=== PATIENT | female | born 1955 | race Caucasian/White ===

== ENCOUNTER → 2016-11-12 | Outpatient (CLI) | payer MEDICARE, OTHER | LOC: HEART 5 09:39 | DX: R06.02 Shortness of breath (principal) | CPT/HCPCS: 93306 ==

== ENCOUNTER → 2016-12-08 | Outpatient (CLI) | payer MEDICARE, OTHER | LOC: HEART 5 13:43 | DX: G47.30 Sleep apnea, unspecified (principal); R06.02 Shortness of breath | CPT/HCPCS: 94010 ==

== ENCOUNTER → 2017-02-11 | Outpatient (CLI) | payer MEDICARE, OTHER | LOC: US 08:30 | DX: R74.0 Nonspecific elevation of levels of transaminase and lactic acid dehydrogenase [LDH] (principal); R93.2 Abnormal findings on diagnostic imaging of liver and biliary tract | CPT/HCPCS: 76705 ==

== ENCOUNTER → 2022-05-25 | Outpatient (CLI) | payer MEDICARE ==
[~2022-05-25] MED LIST: CALCIUM/MG/ZINC PO; COZAAR100 MG PO; CYMBALTA 30 MG30 MG PO; CYMBALTA60 MG PO; EMERGEN-C 500500 MG PO; FISH OIL 1,0001 EACH PO; FLONASE 0.05% N16 GM; IRON PO; LINZESS290 MCG PO; MAPAP ARTHRITI650 MG PO; MILK THISTLE PO; NORVASC 5 MG TAB5 MG PO; PROAIR HFA8.5 GM INH; PROBIOTIC1 EAC3 PO; SINGULAIR10 MG PO; SYNTHROID137 MCG PO; THERAGRAN M TAB1 EA PO; TUMERIC PO; VITAMIN B-1100 MG PO; VITAMIN B-125000 MCG SL; VITAMIN D35000 UNI1 PO; WELLBUTRIN SR150 M1 PO; [UNRECOGNIZED DRUG - OTHER] PO; [UNRECOGNIZED DRUG - OTHER] PO
== END ==
LOC: KOH-I 08:45
DX: K75.81 Nonalcoholic steatohepatitis (NASH) (principal); Z90.49 Acquired absence of other specified parts of digestive tract
CPT/HCPCS: 76700